=== PATIENT | female | born 1990 | race Caucasian/White ===

== ENCOUNTER → 2017-09-30 | Outpatient (CLI) | payer BC ==
[2017-09-30 15:29] LABS: HCT 35.4 % (34.0-46.0); HGB 11.5 gm/dL (11.4-16.0); MCH 26.1 pg (25.0-35.0); MCHC 32.5 g/dL (31.0-37.0); MCV 80.3 fL (80.0-100.0); Mean Platelet Volume 7.1; Platelet Count 288 k/uL (150-450); RDW 14.7 % (11.5-15.5); WBC 8.6 k/uL (3.8-10.6)
[2017-09-30 15:38] LABS: Glucose 83 mg/dL (74-99)
[2017-09-30 19:49] LABS: HIV AB P24 Non-Reactive (Non-Reactive); HIV P24 AG Non-Reactive (Non-Reactive)
[2017-10-01 05:18] LABS: Toxoplasma Antibody (IgG) <3.0 IU/mL (<7.2); Toxoplasma Antibody (IgM) <3.0 AU/mL (<8.0)
== END | disposition home or self-care (01) ==
LOC: LABWHC1 15:12
PROVIDERS: ATTEND Obstetrics & Gynecology
DX: Z34.81 Encounter for supervision of other normal pregnancy, first trimester (principal); Z3A.00 Weeks of gestation of pregnancy not specified
CPT/HCPCS: 36415; 82565; 82947; 85027; 86762; 86777; 86778; 86780; 86850; 86900; 86901; 87340; 87390

== ENCOUNTER → 2017-12-09 | Outpatient (CLI) | payer BC ==
[2017-12-09 11:10] LABS: HCT 33.7 % (34.0-46.0); HGB 10.7 gm/dL (11.4-16.0); MCH 25.9 pg (25.0-35.0); MCHC 31.9 g/dL (31.0-37.0); MCV 81.1 fL (80.0-100.0); Mean Platelet Volume 7.2; Platelet Count 300 k/uL (150-450); RBC 4.15 m/uL (3.80-5.40); RDW 13.9 % (11.5-15.5); WBC 9.8 k/uL (3.8-10.6)
== END | disposition home or self-care (01) ==
LOC: LABWHC1 09:54
PROVIDERS: ATTEND Obstetrics & Gynecology
DX: Z34.82 Encounter for supervision of other normal pregnancy, second trimester (principal); Z3A.00 Weeks of gestation of pregnancy not specified
CPT/HCPCS: 36415; 82950; 85027; 86850

== ENCOUNTER 2018-02-06 06:25 | Emergency (ER) | payer BC, OTHER ==
[2018-02-06] MEDS ORDERED: SODIUM CHLORIDE 0.9% 1,000 ML IV ONE (06:44)
--- NOTE | 2018-02-06 06:54 | ED ---
General Adult HPI - General Source: patient Mode of arrival: ambulatory Limitations: no limitations <Abril Oleary - Last Filed: 02/06/18 07:22> <Salbador Jean - Last Filed: 02/06/18 09:37> - General Chief complaint: Syncope Stated complaint: Syncope-33wk Time Seen by Provider: 02/06/18 06:32 - History of Present Illness Initial comments: Angelica Acuna is a 27-year-old female currently 33 weeks gestation who presents to the emergency department today for evaluation of syncopal episode. Patient reports that she was at work this morning. She works at a factory. She reports that she been standing for approximately 2 hours when she suddenly felt her heart racing, she got very flushed and she passed out. Patient reports that this has never happened before. She did not experience any chest pain prior to the event. She had no seizure-like activity and did not have a postictal period history of syncope in the past. She has no personal cardiac or neurologic history. She has no history of DVT or PE in the past. She hasn' t noticed any unilateral leg swelling. She's not been experiencing any shortness of breath. Patient reports that she's been in her usual state of health, she's been feeling well person of her . She does report that she's had some diarrhea recently having up to 5 bowel movements daily but is not been distressed by this. She doesn't feel dehydrated. She has not attempted any treatment of her diarrhea, she hasn't tried any dietary modifications. (Abril Oleary) - Related Data Home Medications Medication Instructions Recorded Confirmed Pnv,Calcium 72/Iron/Folic Acid 1 tab PO DAILY 08/24/15 02/06/18 [ Plus Tablet] Previous Rx's Medication Instructions Recorded Cephalexin [Keflex] 500 mg PO Q12HR #20 cap 02/06/18 Allergies Allergy/AdvReac Type Severity Reaction Status Date / Time Penicillins Allergy Rash/Hives Verified 02/06/18 08:32 Review of Systems ROS Other: All systems not noted in ROS Statement are negative. <Abril Oleary - Last Filed: 02/06/18 07:22> ROS Other: All systems not noted in ROS Statement are negative. <Salbador Jean - Last Filed: 02/06/18 09:37> ROS Statement: Those systems with pertinent positive or pertinent negative responses have been documented in the HPI. Past Medical History Past Medical History: No Reported History History of Any Multi-Drug Resistant Organisms: None Reported Past Surgical History: No Surgical Hx Reported Past Anesthesia/Blood Transfusion Reactions: No Reported Reaction Past Psychological History: No Psychological Hx Reported Smoking Status: Never smoker Past Alcohol Use History: None Reported Past Drug Use History: None Reported - Past Family History Father Additional Family Medical History / Comment(s): diverticulitus <Abril Oleary - Last Filed: 02/06/18 07:22> General Exam Limitations: no limitations <Abril Oleary - Last Filed: 02/06/18 07:22> <Salbador Jean - Last Filed: 02/06/18 09:37> - General Exam Comments Initial Comments: GENERAL: Patient is well-developed and well-nourished. Patient is nontoxic and well- hydrated and is in no distress. HENT: Normocephalic, Atraumatic. Neck is soft and supple. No significant lymphadenopathy is noted. Oropharynx is clear. Moist mucous membranes. Neck has full range of motion without eliciting any pain. EYES: The sclera were anicteric and conjunctiva were pink and moist. Extraocular movements were intact and pupils were equal round and reactive to light. Eyelids were unremarkable. PULMONARY: Unlabored respirations. Good breath sounds bilaterally. No audible rales rhonchi or wheezing was noted. CARDIOVASCULAR: There is a regular rate and rhythm without any murmurs gallops or rubs. ABDOMEN: Gravid SKIN: Skin is clear with no lesions or rashes and otherwise unremarkable. NEUROLOGIC: Patient is alert and oriented x3. Cranial nerves II through XII are grossly intact. Motor and sensory are also intact. Normal speech, volume and content. Symmetrical smile. MUSCULOSKELETAL: Normal extremities with adequate strength and full range of motion. No lower extremity swelling or edema. No calf tenderness. LYMPHATICS: No significant lymphadenopathy is noted PSYCHIATRIC: Normal psychiatric evaluation. Limitations: no limitations (Abril Oleary) Vital Signs 02/06/18 02/06/18 02/06/18 06:27 06:46 07:18 Temperature 98.2 F Pulse Rate 95 100 Pulse Rate [ 86 Sitting] Pulse Rate [ 97 Standing] Pulse Rate [ 89 Supine] Respiratory 16 18 Rate Blood Pressure 117/67 124/67 Blood Pressure 115/66 [Sitting] Blood Pressure 120/65 [Standing] Blood Pressure 113/61 [Supine] O2 Sat by Pulse 100 99 Oximetry EKG Findings - EKG Comments: EKG Findings:: EKG obtained at 6:30 AM, rate is 94, rhythm is sinus, normal axis , short ID interval, ID 90, QRS 84, QTC 447. No acute ST elevations or depressions. No did have inverted T waves in lead 3. No previous EKG for comparison. No evidence of acute ischemia or infarction or arrhythmia. <Abril Oleary - Last Filed: 02/06/18 07:22> Medical Decision Making - Lab Data Result diagrams: 02/06/18 06:40 <Abril Oleary - Last Filed: 02/06/18 07:22> - Lab Data Result diagrams: 02/06/18 06:40 02/06/18 06:40 <Salbador Jean - Last Filed: 02/06/18 09:37> - Medical Decision Making The patient was seen and evaluated, history was obtained from the patient. She had been standing for approximately 2 hours when she became lightheaded and had a syncopal event No cardiopulmonary history as ago exam findings suggestive of PE Not tachycardic, not hypoxic Labs and imaging were ordered EKG sinus rhythm with a short ID no acute ST elevations depressions or signs of ischemia infarction or arrhythmia care was discussed with OB cone tender Dr. Austin. She recommends evaluation in the ER and if patient is medically cleared the patient should be transferred to the OB floor for further monitoring. CBC results with a hemoglobin of 10.3, patient has noted to have anemia in the past. This is not significantly worsened. This is likely dilutional anemia of . Other labs pending Patient care was signed out to Dr. Jean at 7 AM who will follow-up on labs , and Doppler ultrasounds of this the patient (Abril Oleary) Patient's care is signed out at shift change awaiting labs and bilateral ultrasound of the lower extremity. Labs are reviewed, patient has normal white blood cell count, hemoglobin 10.3. Much less than normal limits. There is mild elevation in AST at 43 and alkaline phosphatase at 204, patient has no right upper quadrant pain. Ultrasound of bilateral extremities is obtained is negative for DVT, chest x-ray is clear with no focal pneumonia or acute cardiopulmonary findings. Urinalysis has 10 RBCs, 17 white cells, and 18 squamous cells. This is contaminated however there is bacteria present. Culture is obtained. Patient is asymptomatic, this is asymptomatic bacteriuria in . She is given Keflex in the emergency department. She has remote history of penicillin ALLERGY as a young child which was hives. No anaphylaxis to penicillins. She will be prescribed Keflex prescription awaiting culture results. She will be discharged from the emergency department and will present immediately to labor and delivery for monitoring. (Salbador Jean) - Lab Data Lab Results 02/06/18 02/06/18 02/06/18 Range/Units 06:40 06:40 06:40 WBC 8.3 (3.8-10.6) k/uL RBC 4.16 (3.80-5.40) m/uL Hgb 10.3 L (11.4-16.0) gm/dL Hct 32.2 L (34.0-46.0) % MCV 77.4 L (80.0-100.0) fL MCH 24.8 L (25.0-35.0) pg MCHC 32.0 (31.0-37.0) g/dL RDW 13.6 (11.5-15.5) % Plt Count 311 (150-450) k/uL Neutrophils % 76 % Lymphocytes % 13 % Monocytes % 6 % Eosinophils % 3 % Basophils % 0 % Neutrophils # 6.3 (1.3-7.7) k/uL Lymphocytes # 1.1 (1.0-4.8) k/uL Monocytes # 0.5 (0-1.0) k/uL Eosinophils # 0.2 (0-0.7) k/uL Basophils # 0.0 (0-0.2) k/uL Hypochromasia Moderate PT 9.3 (9.0-12.0) sec INR 0.9 (<1.2) APTT 23.7 (22.0-30.0) sec Sodium 138 (137-145) mmol/L Potassium 3.6 (3.5-5.1) mmol/L Chloride 108 H (98-107) mmol/L Carbon Dioxide 23 (22-30) mmol/L Anion Gap 7 mmol/L BUN 6 L (7-17) mg/dL Creatinine 0.52 (0.52-1.04) mg/dL Est GFR (CKD-EPI)AfAm >90 (>60 ml/min/1.73 sqM) Est GFR (CKD-EPI)NonAf >90 (>60 ml/min/1.73 sqM) Glucose 95 (74-99) mg/dL POC Glucose (mg/dL) (75-99) mg/dL POC Glu Shearing Machine Feeder ID Calcium 8.9 (8.4-10.2) mg/dL Total Bilirubin 0.3 (0.2-1.3) mg/dL AST 43 H (14-36) U/L ALT 51 (9-52) U/L Alkaline Phosphatase 205 H (38-126) U/L Troponin I (0.000-0.034) ng/mL Total Protein 6.2 L (6.3-8.2) g/dL Albumin 3.1 L (3.5-5.0) g/dL Urine Color Urine Appearance (Clear) Urine pH (5.0-8.0) Ur Specific Holder (1.001-1.035) Urine Protein (Negative) Urine Glucose (UA) (Negative) Urine Ketones (Negative) Urine Blood (Negative) Urine Nitrite (Negative) Urine Bilirubin (Negative) Urine Urobilinogen (<2.0) mg/dL Ur Leukocyte Esterase (Negative) Urine RBC (0-5) /hpf Urine WBC (0-5) /hpf Ur Squamous Epith Cells (0-4) /hpf Urine Bacteria (None) /hpf Urine Mucus (None) /hpf 02/06/18 02/06/18 02/06/18 Range/Units 06:40 06:41 08:00 WBC (3.8-10.6) k/uL RBC (3.80-5.40) m/uL Hgb (11.4-16.0) gm/dL Hct (34.0-46.0) % MCV (80.0-100.0) fL MCH (25.0-35.0) pg MCHC (31.0-37.0) g/dL RDW (11.5-15.5) % Plt Count (150-450) k/uL Neutrophils % % Lymphocytes % % Monocytes % % Eosinophils % % Basophils % % Neutrophils # (1.3-7.7) k/uL Lymphocytes # (1.0-4.8) k/uL Monocytes # (0-1.0) k/uL Eosinophils # (0-0.7) k/uL Basophils # (0-0.2) k/uL Hypochromasia PT (9.0-12.0) sec INR (<1.2) APTT (22.0-30.0) sec Sodium (137-145) mmol/L Potassium (3.5-5.1) mmol/L Chloride (98-107) mmol/L Carbon Dioxide (22-30) mmol/L Anion Gap mmol/L BUN (7-17) mg/dL Creatinine (0.52-1.04) mg/dL Est GFR (CKD-EPI)AfAm (>60 ml/min/1.73 sqM) Est GFR (CKD-EPI)NonAf (>60 ml/min/1.73 sqM) Glucose (74-99) mg/dL POC Glucose (mg/dL) 97 (75-99) mg/dL POC Glu Shearing Machine Feeder ID Rhiannon Oquendo Calcium (8.4-10.2) mg/dL Total Bilirubin (0.2-1.3) mg/dL AST (14-36) U/L ALT (9-52) U/L Alkaline Phosphatase (38-126) U/L Troponin I <0.012 (0.000-0.034) ng/mL Total Protein (6.3-8.2) g/dL Albumin (3.5-5.0) g/dL Urine Color Yellow Urine Appearance Cloudy H (Clear) Urine pH 5.5 (5.0-8.0) Ur Specific Holder 1.010 (1.001-1.035) Urine Protein Negative (Negative) Urine Glucose (UA) Negative (Negative) Urine Ketones Negative (Negative) Urine Blood Negative (Negative) Urine Nitrite Negative (Negative) Urine Bilirubin Negative (Negative) Urine Urobilinogen <2.0 (<2.0) mg/dL Ur Leukocyte Esterase Large H (Negative) Urine RBC 10 H (0-5) /hpf Urine WBC 17 H (0-5) /hpf Ur Squamous Epith Cells 18 H (0-4) /hpf Urine Bacteria Rare H (None) /hpf Urine Mucus Rare H (None) /hpf Disposition <Abril Oleary - Last Filed: 02/06/18 07:22> Is patient prescribed a controlled substance at d/c from ED?: No Time of Disposition: 09:35 - Out of Hospital Transfer - Req. Specs Out of Hospital Transfer - Requested Specifics: Other Non-Acute (Discharge from emergency department, presenting to labor and delivery for monitoring.) <Salbador Jean - Last Filed: 02/06/18 09:37> Clinical Impression: Syncope, Asymptomatic bacteriuria during Disposition: OTHER INSTITUTION NOT DEFINED Condition: Good Instructions: Syncope (ED), Urinary Tract Infection in (ED) Additional Instructions: Patient discharged from emergency department will present to labor and delivery for monitoring. Prescriptions: Cephalexin [Keflex] 500 mg PO Q12HR #20 cap Referrals: None,Stated [Primary Care Provider] - 1-2 days
[2018-02-06 07:00] LABS: Basophils % (A) 0 %; Eosinophils # (A) 0.2 k/uL (0-0.7); Eosinophils % (A) 3 %; HCT 32.2 % (34.0-46.0); HGB 10.3 gm/dL (11.4-16.0); Hypochromasia Moderate; Lymphocytes # (A) 1.1 k/uL (1.0-4.8); Lymphocytes % (A) 13 %; MCH 24.8 pg (25.0-35.0); MCV 77.4 fL (80.0-100.0); Mean Platelet Volume 7.9; Monocytes # (A) 0.5 k/uL (0-1.0); Monocytes % (A) 6 %; Neutrophils # (A) 6.3 k/uL (1.3-7.7); Neutrophils % (A) 76 %; Platelet Count 311 k/uL (150-450); RBC 4.16 m/uL (3.80-5.40); RDW 13.6 % (11.5-15.5); WBC 8.3 k/uL (3.8-10.6)
[2018-02-06 07:08] LABS: Glucose,Whole Blood 97 mg/dL (75-99)
[2018-02-06 07:09] LABS: INR 0.9 (<1.2); Partial Thromboplastin Time 23.7 sec (22.0-30.0); Prothrombin Time 9.3 sec (9.0-12.0)
[2018-02-06 07:29] LABS: ALT 51 U/L (9-52); AST 43 U/L (14-36); Albumin 3.1 g/dL (3.5-5.0); Alkaline Phosphatase 205 U/L (38-126); Anion Gap 7 mmol/L; Blood Urea Nitrogen 6 mg/dL (7-17); Calcium 8.9 mg/dL (8.4-10.2); Carbon Dioxide 23 mmol/L (22-30); Chloride 108 mmol/L (98-107); Glucose 95 mg/dL (74-99); Potassium 3.6 mmol/L (3.5-5.1); Sodium 138 mmol/L (137-145); Total Bilirubin 0.3 mg/dL (0.2-1.3); Total Protein 6.2 g/dL (6.3-8.2)
--- NOTE | 2018-02-06 08:05 | US ---
EXAMINATION TYPE: US venous doppler duplex LE BI DATE OF EXAM: 02/06/2018 6:45 AM COMPARISON: NONE CLINICAL HISTORY: 27-year-old female Pain. Pt states leg tightness/swelling, pt is 33 weeks / no known prior DVT SIDE PERFORMED: Bilateral TECHNIQUE: The lower extremity deep venous system is examined utilizing real time linear array sonog karina with graded compression, doppler sonography and color-flow sonography. FINDINGS: VESSELS IMAGED: External Iliac Vein (EIV) Common Femoral Vein Deep Femoral Vein Greater Saphenous Vein * Femoral Vein Popliteal Vein Small Saphenous Vein * Proximal Calf Veins (* superficial vessels) Right Leg: Negative for DVT Left Leg: Negative for DVT IMPRESSION: No evidence for DVT within the bilateral lower extremities imaged from the groin to the upper calves.
--- NOTE | 2018-02-06 08:45 | XR ---
EXAMINATION TYPE: XR chest 2V DATE OF EXAM: 02/06/2018 COMPARISON: None HISTORY: 27-year-old female with syncope TECHNIQUE: Frontal and lateral views FINDINGS: The cardiomediastinal silhouette, aorta, and pulmonary vasculature are within normal limits. Lungs an d pleural spaces are clear. IMPRESSION: No acute cardiopulmonary process.
[2018-02-06 09:28] LABS: Appearance,Urine Cloudy (Clear); Bacteria,Urine Rare /hpf; Bilirubin,Urine Negative (Negative); Blood,Urine Negative (Negative); Color,Urine Yellow; Glucose,Urine (UA) Negative (Negative); Ketones,Urine Negative (Negative); Leukocyte Esterase,Urine Large (Negative); Mucus,Urine Rare /hpf; Nitrite,Urine Negative (Negative); PH, Urine 5.5 (5.0-8.0); Protein,Urine Negative (Negative); RBC,Urine 10 /hpf (0-5); Squamous Epithelial Cell,Urine 18 /hpf (0-4); Urobilinogen,Urine <2.0 mg/dL (<2.0); WBC,Urine 17 /hpf (0-5)
[2018-02-06] MEDS ORDERED: CEPHALEXIN 500 MG CAP PO STA (09:29)
[2018-02-06 09:48] VITALS: BP 119/62; PULSE 87; RESP 16; TEMP 98
== END 2018-02-06 09:47 | disposition other institution (70) ==
LOC: EC 06:25
DX: O23.43 Unspecified infection of urinary tract in pregnancy, third trimester (principal); O99.89 Other specified diseases and conditions complicating pregnancy, childbirth and the puerperium; R55 Syncope and collapse; Z3A.33 33 weeks gestation of pregnancy; Z88.0 Allergy status to penicillin
CPT/HCPCS: 36415; 71046; 80053; 81001; 84484; 85025; 85610; 85730; 87086; 93005; 93970; 96360; 99285

== ENCOUNTER 2018-02-06 09:57 | Outpatient (CLI) | payer BC, OTHER ==
[2018-02-06 10:39] VITALS: BP 117/64; PULSE 79; RESP 16; TEMP 98
--- NOTE | 2018-02-22 09:41 | P.MSEPDOC ---
Presenting Problems - Arrival Data Date of Arrival on Unit: 02/06/18 Time of Arrival on Unit: 10:00 Mode of Transport: Ambulatory - Complaint Comment: pt was seen in ER after a fainting episode at work early this morning. pt had a full work up in ER and is in triage for NST Medical History - Information : 2 Para: 1 Term: 0 : 0 Abortions: Spontaneous or Elective: 0 Number of Living Children: 1 - Gestational Age Gestational Age by [place] (wks/days): 33 Weeks and 2 Days - History Complications: Prior Review of Systems - Review of Systems Constitutional: No problems Breast: No problems ENT: No problems Respiratory: No problems Gastrointestinal: No problems Genitourinary: No problems Musculoskeletal: No problems Neurological: No problems Skin: No problems Vital Signs - Temperature Temperature: 98 F Temperature Source: Oral - Pulse Right Pulse Rate: 79 Pulse Assessment Method: Automatic Cuff - Respirations Respiratory Rate: 16 Oxygen Delivery Method: Room Air - Blood Pressure Right Arm Blood Pressure: 117/64 Blood Pressure Mean: 81 Blood Pressure Source: Automatic Cuff Medical Screen Scoring (Pre) - Cervical Exam Dilation: Exam Deferred Effacement: Exam Deferred - Uterine Contractions Frequency: N/A Duration: N/A Intensity: N/A - Maternal Vital Signs Maternal Temperature: N/A Maternal Blood Pressure: N/A Signs of Preeclampsia: N/A Maternal Respirations: N/A - Pain Assessment Pain Intensity: 0 - Assessment Baseline FHR: 135 Heart Rate - NICHD Category: Category I (Normal) = 0 NST: Reactive Position: N/A Station: N/A - Total Score Total Score (Pre): 0 - Level of Risk Level of Risk: Low (0-5) Physician Notification (Pre) - Physician Notified Physician Notified Date: 02/06/18 Physician Notified Time: 10:15 Physician/Practitioner Notifed:: salazar Spoke With: salazar - Notification Comment Comment: dr lincoln at bedside, would like nst. when reactive pt may be discharged home Disposition - Disposition OB Disposition: Discharge to home Discharge Date: 02/06/18 Discharge Time: 10:35 I agree with the RN Medical Screening Exam: Yes Risk & Benefit of care provided described in d/c instruction: Yes Diagnosis: RELATED CONDITIONS, UNSPECIFIED, THIRD TRIMESTER
== END 2018-02-06 10:35 | disposition home or self-care (01) ==
LOC: FBPOP 09:57
PROVIDERS: ATTEND Obstetrics & Gynecology
DX: O26.93 Pregnancy related conditions, unspecified, third trimester (principal); Z3A.33 33 weeks gestation of pregnancy
CPT/HCPCS: 59025; 99213

== ENCOUNTER 2018-02-11 16:27 | Observation (INO) | payer BC, OTHER ==
[2018-02-11 17:33] LABS: Total Bilirubin 0.4 mg/dL (0.2-1.3)
--- NOTE | 2018-02-11 18:40 | P.HPOB ---
History of Present Illness H&P Date: 02/11/18 Chief Complaint: Intrauterine at 34 weeks: Suspected cholestasis Sravani is a 27-year-old at 34 weeks gestation who arrived to my office today complaining of itching in the her palms and soles. She was sent to labor and delivery for evaluation. AST and ALTs are both elevated. We will do the remainder of the preeclamptic labs and repeat AST and ALTs in the morning to verify that this is cholestasis and not an aberrant preeclampsia. Blood pressures have however been normal so this is much less likely. We'll plan to initiate Actigall as a treatment for her cholestasis as well as Benadryl. We' ll make every effort to refer her to [facility] but as she is [place] 34 weeks and she will most likely be delivered at 37 weeks, we may have difficulty in getting her in prior to time for delivery. Bile salts are pending. We'll also order an ultrasound delivered fer. She is scheduled for a section at 39 weeks for macrosomia, almost certainly she will be having a for cholestasis at 37 weeks instead. Her Precis course prior to this has been generally unremarkable and she was feeling well all the way up until approximately 2-3 days when the itching began. Pertinent labs could O- blood type rubella is immune and hepatitis B surface antigen and RPR were both negative. She is amenable to admission and observation with labs to verify no other compounding process. She does have a category 1 tracing at this time. We're seeing intermittent contractions but she is not feeling them. Assessment intrauterine at 34 weeks: Plan as above Past Medical History Past Medical History: No Reported History History of Any Multi-Drug Resistant Organisms: None Reported Past Surgical History: No Surgical Hx Reported Past Anesthesia/Blood Transfusion Reactions: No Reported Reaction Smoking Status: Former smoker - Past Family History Father Additional Family Medical History / Comment(s): diverticulitus Medications and Allergies Home Medications Medication Instructions Recorded Confirmed Type Pnv,Calcium 72/Iron/Folic Acid 1 tab PO DAILY 08/24/15 02/11/18 History [ Plus Tablet] Cephalexin [Keflex] 500 mg PO Q12HR #20 cap 02/06/18 02/11/18 Rx Allergies Allergy/AdvReac Type Severity Reaction Status Date / Time Penicillins Allergy Rash/Hives Verified 02/11/18 16:47 Exam Osteopathic Statement: *. No significant issues noted on an osteopathic structural exam other than those noted in the History and Physical/Consult. Intake and Output 02/11/18 02/11/18 02/11/18 06:59 14:59 22:59 Other: Weight 80.739 kg - OBG Physical Exam Breast: both: normal (no masses) Abdomen: bowel sounds normal, no diffuse tenderness, no bruit present, no guarding noted, no hepatomegaly, no splenomegaly, no mass Vulva: both: normal Vagina: normal moisture, no discharge Cervix: no lesion, no discharge Uterus: normal size, normal contour Adnexa: both: normal Anus/Rectum: normal perianal skin, no rectal mass, no hemorrhoids, heme negative Results Abnormal Lab Results - Last 24 Hours (Table) 02/11/18 Range/Units 17:00 AST 95 H (14-36) U/L ALT 127 H (9-52) U/L
[2018-02-11] MEDS ORDERED: diphenhydrAMINE 25 MG CAP PO PRN (19:14)
[2018-02-11 19:18] LABS: Basophils % (A) 0 %; Eosinophils # (A) 0.2 k/uL (0-0.7); Eosinophils % (A) 2 %; HCT 31.5 % (34.0-46.0); Hypochromasia Moderate; LDH 565 U/L (313-618); Lymphocytes # (A) 1.3 k/uL (1.0-4.8); Lymphocytes % (A) 14 %; MCH 24.8 pg (25.0-35.0); MCHC 31.6 g/dL (31.0-37.0); MCV 78.5 fL (80.0-100.0); Mean Platelet Volume 8.4; Monocytes # (A) 0.5 k/uL (0-1.0); Monocytes % (A) 6 %; Neutrophils # (A) 6.8 k/uL (1.3-7.7); Neutrophils % (A) 76 %; Platelet Count 323 k/uL (150-450); Poikilocytosis Slight; RBC 4.01 m/uL (3.80-5.40); RDW 13.5 % (11.5-15.5); Uric Acid 4.4 mg/dL (3.7-7.4)
[2018-02-11 19:55] LABS: Appearance,Urine Clear (Clear); Bacteria,Urine Rare /hpf; Bilirubin,Urine Negative (Negative); Blood,Urine Negative (Negative); Color,Urine Light Yellow; Glucose,Urine (UA) Negative (Negative); Ketones,Urine 1+ (Negative); Leukocyte Esterase,Urine Small (Negative); Nitrite,Urine Negative (Negative); Protein,Urine Negative (Negative); RBC,Urine 2 /hpf (0-5); Specific Gravity,Urine 1.005 (1.001-1.035); Squamous Epithelial Cell,Urine <1 /hpf (0-4); Urobilinogen,Urine <2.0 mg/dL (<2.0); WBC,Urine <1 /hpf (0-5)
[2018-02-11] MEDS: URSODIOL 300 MG CAP PO SCH (20:14)
[2018-02-11 20:17] VITALS: BMI 32.5
--- NOTE | 2018-02-11 20:51 | US ---
EXAMINATION TYPE: US liver DATE OF EXAM: 02/11/2018 COMPARISON: NONE CLINICAL HISTORY: cholestasis of preg. Cholestasis of 34 weeks itchy. EXAM MEASUREMENTS: Liver Length: 17.3 cm Gallbladder Wall: 0.3 cm CBD: 0.2 cm Right Kidney: 10.2 x 4.4 x 4.3 cm Pancreas: wnl Liver: wnl Gallbladder: wnl Evidence for sonographic Sanchez's sign: No CBD: wnl Right Kidney: Mild hydronephrosis and hydroureter seen. IMPRESSION: POSITIVE FOR MILD SIDED HYDRONEPHROSIS/HYDROURETER.
[2018-02-11] MEDS ORDERED: diphenhydrAMINE 25 MG CAP PO SCH (22:00)
[2018-02-12 00:19] VITALS: BP 134/67; PULSE 103; RESP 16; TEMP 98.4
[2018-02-12] MEDS: URSODIOL 300 MG CAP PO SCH (07:45)
--- NOTE | 2018-02-12 08:38 | P.DS ---
Providers Date of admission: 02/11/18 19:21 Expected date of discharge: 02/12/18 Attending physician: Norma Austin Primary care physician: Stated None Hospital Course: Overall Sravani is doing well. She still has some itching but relates that the Benadryl did help her last night. A.m. labs are pending, but sponsors no dramatic change from yesterday we'll plan discharged home later today with prescription for Actigall and Benadryl at bedtime. We are arranging a consultation with [facility] as soon as that is able to happen as well. She is aware to return with worsening of symptoms and will need twice-weekly NSTs that can be done in our office. All the questions are answered at this time and her heart rates have showed category 1 tracings. Patient Condition at Discharge: Good Plan - Discharge Summary New Discharge Prescriptions: New Ursodiol [Actigall] 300 mg PO BID #60 capsule No Action Pnv,Calcium 72/Iron/Folic Acid [ Plus Tablet] 1 tab PO DAILY Cephalexin [Keflex] 500 mg PO Q12HR #20 cap Discharge Medication List Pnv,Calcium 72/Iron/Folic Acid [ Plus Tablet] 1 tab PO DAILY 08/24/15 [ History] Cephalexin [Keflex] 500 mg PO Q12HR #20 cap 02/06/18 [Rx] Ursodiol [Actigall] 300 mg PO BID #60 capsule 02/12/18 [Rx] Follow up Appointment(s)/Referral(s): Forrest Peña DO [Doctor of Osteopathic Medicine] - 1 Week Activity/Diet/Wound Care/Special Instructions: Return for worsening of symptoms. May also use Benadryl at bedtime for the itching. Other instructions were reviewed with the patient including cool compresses or cool lukewarm baths to help decrease the symptoms. Discharge Disposition: HOME SELF-CARE
[2018-02-12 10:54] LABS: ALT 151 U/L (9-52); AST 112 U/L (14-36)
== END 2018-02-12 12:40 | disposition home or self-care (01) ==
LOC: FBPOP 16:27 → 4FBP 19:21
PROVIDERS: ADMIT Obstetrics & Gynecology; ATTEND Obstetrics & Gynecology
DX: O26.613 Liver and biliary tract disorders in pregnancy, third trimester (principal); K83.1 Obstruction of bile duct; O26.893 Other specified pregnancy related conditions, third trimester; L29.9 Pruritus, unspecified; O36.63X0 Maternal care for excessive fetal growth, third trimester, not applicable or unspecified; Z3A.34 34 weeks gestation of pregnancy; Z87.891 Personal history of nicotine dependence; Z88.0 Allergy status to penicillin
CPT/HCPCS: 59025; 82239; 82247; 82565; 83615; 84450 ×2; 84460 ×2; 84550; 85025; 81001; 76705; G0378 ×2

== ENCOUNTER 2018-03-04 10:01 | Inpatient (IN) | payer BC, OTHER ==
[2018-03-03 14:05] VITALS: BMI 32.1
[2018-03-04] MEDS ORDERED: LACTATED RINGERS 1,000 ML IV ONE (10:08)
[2018-03-04] MEDS ORDERED: CITRIC ACID-SODIUM CITRATE 15 ML CUP PO ONE (10:08)
[2018-03-04 10:45] LABS: Basophils % (A) 0 %; Eosinophils # (A) 0.2 k/uL (0-0.7); Eosinophils % (A) 3 %; HCT 32.8 % (34.0-46.0); HGB 10.5 gm/dL (11.4-16.0); Hypochromasia Marked; Lymphocytes # (A) 1.4 k/uL (1.0-4.8); Lymphocytes % (A) 14 %; MCH 23.8 pg (25.0-35.0); MCV 74.6 fL (80.0-100.0); Mean Platelet Volume 7.7; Microcytosis Slight; Monocytes # (A) 0.5 k/uL (0-1.0); Monocytes % (A) 5 %; Neutrophils # (A) 7.3 k/uL (1.3-7.7); Neutrophils % (A) 75 %; Platelet Count 328 k/uL (150-450); Poikilocytosis Slight; WBC 9.7 k/uL (3.8-10.6)
[2018-03-04] MEDS ORDERED: CLINDAMYCIN 600 MG in DEXTROSE 5% IN WATER 50 ML IVPB STA ×2 (11:27)
[2018-03-04] MEDS ORDERED: SUCCINYLCHOLINE CHLORIDE VIAL 200 MG/10 ML VIAL IV ONE (12:01)
[2018-03-04] MEDS ORDERED: OXYTOCIN 10 UNIT/ML 1 ML VIAL ONE (12:01)
[2018-03-04] MEDS ORDERED: PROPOFOL 10 MG/ML 20 ML VIAL IV ONE (12:01)
[2018-03-04] MEDS ORDERED: MORPHINE SULFATE (PF) 0.3 MG/0.3 ML SYR ONE (12:01)
[2018-03-04] MEDS ORDERED: DEXAMETHASONE SOD PHOS (MDV) 100 MG/10 ML VIAL ONE (12:01)
[2018-03-04] MEDS ORDERED: ONDANSETRON 4 MG/2 ML VIAL ONE (12:01)
[2018-03-04] MEDS ORDERED: HYDROmorphone (PF) 1 MG/ML ONE (12:01)
[2018-03-04] MEDS ORDERED: KETOROLAC 30 MG/ML 1 ML VIAL ONE (12:01)
[2018-03-04] MEDS ORDERED: fentaNYL (PF) 50 MCG/ML 2 ML AMP ONE (12:01)
--- NOTE | 2018-03-04 12:53 | P.HPOB ---
History of Present Illness H&P Date: 03/04/18 Chief Complaint: Intrauterine at term: Prior section: Cholestasis Sravani is a 27-year-old she to P1 at 37 weeks gestation with a history of cholestasis in prior section. She is scheduled for repeat section with tubal ligation for family planning. Risks/benefits/alternatives to this procedure were discussed with the patient in detail and all questions were answered for her prior to proceeding to the operating room. Cholestasis has been managed well with Actigall. Pertinent labs could O- blood type, rubella was immune, hepatitis B surface antigen really strep and HIV were all negative. Past Medical History Past Medical History: No Reported History Additional Past Medical History / Comment(s): hx mild preeclampsia,cholestasis History of Any Multi-Drug Resistant Organisms: None Reported Past Surgical History: Section Past Anesthesia/Blood Transfusion Reactions: Motion Sickness, Postoperative Nausea & Vomiting (PONV) Past Psychological History: No Psychological Hx Reported Smoking Status: Former smoker Past Alcohol Use History: None Reported Additional Past Alcohol Use History / Comment(s): quit smoking Jun 2017,smoked approx 6 yrs <1ppd Past Drug Use History: None Reported - Past Family History Father Additional Family Medical History / Comment(s): diverticulitus Medications and Allergies Home Medications Medication Instructions Recorded Confirmed Type Pnv,Calcium 72/Iron/Folic Acid 1 tab PO DAILY 08/24/15 03/04/18 History [ Plus Tablet] Ursodiol [Actigall] 300 mg PO BID #60 capsule 02/12/18 03/04/18 Rx Allergies Allergy/AdvReac Type Severity Reaction Status Date / Time Penicillins Allergy Rash/Hives Verified 03/04/18 10:07 Exam Osteopathic Statement: *. No significant issues noted on an osteopathic structural exam other than those noted in the History and Physical/Consult. Vital Signs Temp Pulse Resp BP 03/04/18 10:07 96.9 F L 89 18 127/74 - OBG Physical Exam Breast: both: normal (no masses) Abdomen: bowel sounds normal, no diffuse tenderness, no bruit present, no guarding noted, no hepatomegaly, no splenomegaly, no mass Vulva: both: normal Vagina: normal moisture, no discharge Cervix: no lesion, no discharge Uterus: normal size, normal contour Adnexa: both: normal Anus/Rectum: normal perianal skin, no rectal mass, no hemorrhoids, heme negative Results Result Diagrams: 03/04/18 10:30 Abnormal Lab Results - Last 24 Hours (Table) 03/04/18 Range/Units 10:30 Hgb 10.5 L (11.4-16.0) gm/dL Hct 32.8 L (34.0-46.0) % MCV 74.6 L (80.0-100.0) fL MCH 23.8 L (25.0-35.0) pg
--- NOTE | 2018-03-04 12:57 | P.OP ---
Date of Procedure: 03/04/18 Preoperative Diagnosis: Intrauterine at term: Cholestasis: Family planning Postoperative Diagnosis: Same Procedure(s) Performed: Repeat low transverse section Anesthesia: RODERICK Surgeon: Forrest Peña School Resource Officer #1: René Zapata Estimated Blood Loss (ml): 600 IV fluids (ml): 1,000 Urine output (ml): 200 Pathology: other (Placenta) Condition: stable Disposition: floor Operative Findings: Female scores were 8 and 9 at one and 5 minutes respectively and the weight was 8 lbs. 2 oz. Description of Procedure: Patient was taken to the operating suite where a general anesthetic was found be adequate. She was prepped and draped in the normal sterile fashion placed in the dorsal supine position with leftward tilt. A spinal had been attempted but she did not get any relief at all from the spinal. Once positioned and under general anesthetic, Pfannenstiel skin incision was made and this incision was then carried through to the underlying layer of the fascia and fascia was nicked in the midline. This opening was then extended laterally with Galeana scissors and superior and inferior aspect of this incision were then bluntly and sharply dissected off the rectus muscles. Dissection the peritoneum was then made and this opening was extended superiorly and inferiorly with good visualization of both bowel bladder. Vesicouterine peritoneum was identified and entered with Metzenbaum scissors and carried across face of the uterus Metzenbaum scissors and her bladder was digitally dissected out of the operative field. Bladder blade was then placed knife was used to incise uterus. This opening was fully developed with hemostat and then extended bluntly. Head was attempted deliver spontaneously however a vacuum was applied for approximately 10 seconds to deliver the head through the incision and then gentle traction downward and upward was done to deliver the shoulders and remainder the baby. Mouth nares were then bulb suctioned and umbilical cord was clamped cut usual fashion. Nursery personnel was present to assume care. Placenta was then delivered intact and Pitocin was added to the IV. Uterus was then exteriorized cleared of clots and debris and closed in 1 layer with 0 Vicryl suture. Once excellent hemostasis was obtained attention was turned to the fallopian tubes where a hemostat was placed right and left tube 3 cm from uterine cornu. A window was then created in the mesosalpinx with Bovie cautery and 2 proximal and 2 distal 2-0 silk sutures were placed 2 cm apart with the intervening segment excised and tips cauterized. Blood and debris and debris was then suctioned from the posterior cul-de-sac and the uterus was reinserted into the abdomen. Peritoneal layer was then reapproximated with 0 Vicryl suture fascial layer was closed with 0 Vicryl suture. One layer of 3-0 Vicryl was placed in the deep subcuticular tissues to reapproximate the skin and close that space, and the skin was closed with 3-0 Vicryl. Sponge, lap, needle counts were all correct 2. Patient was then taken to the recovery room in stable and satisfactory condition.
[2018-03-04] MEDS ORDERED: ACETAMINOPHEN TAB 325 MG TAB PO PRN (13:04)
[2018-03-04] MEDS ORDERED: METOCLOPRAMIDE 5 MG/ML 2 ML VIAL IVP PRN (13:04)
[2018-03-04] MEDS ORDERED: ZOLPIDEM 5 MG TAB PO PRN (13:04)
[2018-03-04] MEDS ORDERED: diphenhydrAMINE 50 MG/ML 1 ML VIAL IVP PRN ×2 (13:04)
[2018-03-04] MEDS ORDERED: ONDANSETRON 4 MG/2 ML VIAL IVP PRN (13:04)
[2018-03-04] MEDS ORDERED: diphenhydrAMINE 25 MG CAP PO PRN (13:04)
[2018-03-04] MEDS ORDERED: diphenhydrAMINE 50 MG CAP PO PRN (13:04)
[2018-03-04] MEDS ORDERED: NALOXONE 0.4 MG/ML 1 ML VIAL IV PRN ×2 (13:04→13:05)
[2018-03-04] MEDS: HYDROmorphone PCA 5 MG/25 ML SYRINGE IV PRN ×2 (14:01→19:55)
[2018-03-04] MEDS: LACTATED RINGERS 1,000 ML IV SCH (16:28)
[2018-03-04] MEDS ORDERED: Rhogam IMMUNE GLOBULIN 1,500 UNIT/1 ML IM ONE (20:03)
[2018-03-04] MEDS: SENNOSIDES-DOCUSATE SODIUM 1 EACH TAB PO SCH (23:27)
[2018-03-05] MEDS: LACTATED RINGERS 1,000 ML IV SCH ×5 (00:48→05:14)
[2018-03-05 07:12] LABS: Basophils % (A) 0 %; Eosinophils # (A) 0.1 k/uL (0-0.7); Eosinophils % (A) 1 %; HCT 27.9 % (34.0-46.0); Hypochromasia Slight; Lymphocytes # (A) 1.6 k/uL (1.0-4.8); Lymphocytes % (A) 14 %; MCH 23.3 pg (25.0-35.0); MCHC 31.6 g/dL (31.0-37.0); MCV 73.6 fL (80.0-100.0); Mean Platelet Volume 8.2; Microcytosis Slight; Monocytes # (A) 0.8 k/uL (0-1.0); Monocytes % (A) 7 %; Neutrophils # (A) 8.8 k/uL (1.3-7.7); Neutrophils % (A) 76 %; Platelet Count 317 k/uL (150-450); Poikilocytosis Slight; RDW 14.8 % (11.5-15.5); WBC 11.5 k/uL (3.8-10.6)
[2018-03-05 07:19] LABS: HGB 8.8 gm/dL (11.4-16.0)
[2018-03-05] MEDS: KETOROLAC 30 MG/ML 1 ML VIAL IVP PRN ×2 (08:14→17:06)
[2018-03-05] MEDS: SENNOSIDES-DOCUSATE SODIUM 1 EACH TAB PO SCH ×2 (08:15→22:54)
--- NOTE | 2018-03-05 09:01 | P.PNOBGPC ---
Subjective - Subjective Principal diagnosis: Postop day 1 Interval history: Overall doing very well. She is ambulating and she is voiding. All questions are answered for her this morning. Patient reports: Reports appetite normal, Reports voiding normally, Reports pain well controlled, Reports ambulating normally : doing well Objective - Vital Signs Latest vital signs: Vital Signs Temp Pulse Resp BP Pulse Ox 03/05/18 04:00 98.5 F 90 16 105/57 97 03/05/18 00:00 98.4 F 80 16 129/75 99 03/04/18 20:00 97.8 F 77 16 109/70 98 03/04/18 15:00 97.2 F L 78 18 124/64 100 03/04/18 14:30 77 18 126/68 100 03/04/18 14:00 75 18 139/81 100 03/04/18 13:45 76 18 129/80 100 03/04/18 13:30 76 18 128/73 100 03/04/18 13:24 96.9 F L 93 18 122/60 03/04/18 13:15 89 18 125/58 03/04/18 13:05 96 03/04/18 10:07 96.9 F L 89 18 127/74 Intake and Output 03/04/18 03/05/18 03/05/18 22:59 06:59 14:59 Intake Total 375 Output Total 1125 450 Balance -750 -450 Intake: Intake, IV Titration 375 Amount Lactated Ringers 1,000 ml 375 @ 125 mls/hr IV .Q8H [facility] Rx#:[id number] Output: Urine 1125 450 Uretheral (Hernandez) 450 Other: Voiding Method Indwelling Catheter # Voids 0 1 - Exam Lungs: bilateral: normal Chest: Normal S1, Normal S2 Extremities: Present: normal Abdomen: Present: normal appearance, soft. Absent: distention, tenderness Incision: Present: normal, dry, intact Uterus: Present: normal, firm - Labs Labs: Abnormal Lab Results - Last 24 Hours (Table) 03/04/18 03/05/18 Range/Units 10:30 06:50 WBC 11.5 H (3.8-10.6) k/uL Hgb 10.5 L 8.8 L D (11.4-16.0) gm/dL Hct 32.8 L 27.9 L (34.0-46.0) % MCV 74.6 L 73.6 L (80.0-100.0) fL MCH 23.8 L 23.3 L (25.0-35.0) pg Neutrophils # 8.8 H (1.3-7.7) k/uL
[2018-03-05] MEDS: IBUPROFEN 600 MG TAB PO PRN (22:57)
[2018-03-06] MEDS: LACTATED RINGERS 1,000 ML IV SCH (04:45)
[2018-03-06] MEDS: IBUPROFEN 600 MG TAB PO PRN (07:55)
[2018-03-06] MEDS: SENNOSIDES-DOCUSATE SODIUM 1 EACH TAB PO SCH (07:57)
[2018-03-06 08:00] VITALS: BP 142/90; PULSE 99; RESP 16; TEMP 98.5
--- NOTE | 2018-03-06 10:26 | P.DS ---
Providers Date of admission: 03/04/18 10:01 Expected date of discharge: 03/06/18 Attending physician: Forrest Peña Primary care physician: Stated None Hospital Course: Sravani is doing very well post op day 2. She is involuting, voiding and she is tolerating her diet. She voices no complaints and requests discharged home today. Vital signs are stable and she is afebrile. She does have minimal swelling in her feet and hands with mild complaint of carpal tunnel like effect which is been present previously. Reassured this should get better in the next week or 2. Prescription for [place] and Motrin provided. All other questions are answered for her prior to discharge. On physical exam heart regular, lungs clear, extremities without pain. Abdomen is soft uterus is firm and her incision is otherwise clean dry and intact. She will follow up with me in 1 week. Assessment postop day 2. Plan discharged home follow up in 1 week. Patient Condition at Discharge: Good Plan - Discharge Summary New Discharge Prescriptions: New HYDROcodone/APAP 5-325MG [[place] 5-325] 1 tab PO Q4HR PRN #30 tab PRN Reason: Pain Ibuprofen [Motrin] 600 mg PO Q6HR PRN #30 tab PRN Reason: Pain No Action Pnv,Calcium 72/Iron/Folic Acid [ Plus Tablet] 1 tab PO DAILY Ursodiol [Actigall] 300 mg PO BID #60 capsule Discharge Medication List Pnv,Calcium 72/Iron/Folic Acid [ Plus Tablet] 1 tab PO DAILY 08/24/15 [ History] Ursodiol [Actigall] 300 mg PO BID #60 capsule 02/12/18 [Rx] HYDROcodone/APAP 5-325MG [[place] 5-325] 1 tab PO Q4HR PRN #30 tab 03/06/18 [Rx] Ibuprofen [Motrin] 600 mg PO Q6HR PRN #30 tab 03/06/18 [Rx] Follow up Appointment(s)/Referral(s): Forrest Peña DO [Doctor of Osteopathic Medicine] - 1 Week Activity/Diet/Wound Care/Special Instructions: No heavy lifting, limit stairs and driving and pelvic rest. If any high temperatures, heavy bleeding, or severe pain call my office. No tub baths for 2 weeks Discharge Disposition: HOME SELF-CARE
== END 2018-03-06 12:00 | disposition home or self-care (01) | DRG 783 ==
LOC: 4FBP 10:01
PROVIDERS: ADMIT Obstetrics & Gynecology; ATTEND Obstetrics & Gynecology
PROC: 0UB70ZZ Excision of Bilateral Fallopian Tubes, Open Approach (ICD-10-PCS; principal; 2018-03-04 12:00)
PROC: 10D00Z1 Extraction of Products of Conception, Low, Open Approach (ICD-10-PCS; principal; 2018-03-04 12:00)
DX: O34.211 Maternal care for low transverse scar from previous cesarean delivery (principal); K83.1 Obstruction of bile duct; O26.62 Liver and biliary tract disorders in childbirth; Z37.0 Single live birth; Z3A.37 37 weeks gestation of pregnancy; Z87.891 Personal history of nicotine dependence; Z88.0 Allergy status to penicillin; Z79.899 Other long term (current) drug therapy
CPT/HCPCS: 85025; 85461; 86850; 86870; 86880; 86900; 86901; 88302